=== PATIENT | female | born 1960 | race Caucasian/White ===

== ENCOUNTER 2021-02-19 08:23 | Emergency (ER) | payer MEDICARE, SELFPAY ==
[2021-02-19] VITALS (22 sets, daily range): BP systolic 69–112; BP diastolic 28–91; PULSE 77–108; RESP 16–37; TEMP 36.9; O2SAT 91–99
--- NOTE | ~2021-02-19 | XR_ITS ---
XR chest port-a-cath/central 02/19/2021 20:06 Indication: Central line placement Procedure: AP portable chest Comparison: 02/19/2021 Findings: Patchy bilateral airspace disease, compatible with pneumonia. Right IJ central line tip in the right atrium. Small pleural effusion. No pneumothorax. Impression: 1: Patchy bilateral airspace disease, compatible with pneumonia. Reviewed, dictated and finalized at location A. Impression: 1: Patchy bilateral airspace disease, compatible with pneumonia.
--- NOTE | ~2021-02-19 | CT_ITS ---
EXAMINATION: CT abdomen pelvis w con DATE: 02/19/2021 11:53 INDICATION: Generalized abdominal pain. TECHNIQUE: Computed tomography (CT) of the abdomen and pelvis was performed with 100 mL Omnipaque 350 intravenous contrast. Automated exposure control and iterative reconstruction technique were employe d. The dose-length product was 704.47 mGy-cm. COMPARISON: None. FINDINGS: The visualized portions of the lung bases demonstrate patchy airspace and groundglass opaci ties in right middle lobe with cavitation. There is crazy paving in right upper lobe and lingula. The re are patchy airspace opacities and groundglass opacities in the lower lobes with air bronchograms. There is a small left pleural effusion. Cardiomegaly is noted. There are coronary artery calcificatio ns. There is a small pericardial effusion. There is heterogeneous liver attenuation. There is a 2.3 c m cyst in the liver. The gallbladder is normal in size. Gallbladder wall thickening is likely seconda ry to interstitial edema. The spleen, pancreas, and right adrenal gland are normal. There is a 1.9 cm mass in left adrenal gland measuring soft tissue attenuation. There is cortical thinning of the kidn eys. There is a 1.3 cm cyst in right kidney. Pelvic floor relaxation is noted. There is a small volum e of ascites. There is an anastomosis in the sigmoid colon. There are no dilated loops of bowel. The appendix is not visualized. There is severe thoracic and lumbar spondylosis. There is a radiopaque fo reign body anterior to S1. IMPRESSION: 1. Multifocal pneumonia. 2. Small pleural effusion. 3. Cardiomegaly. 4. Small pericardial effusion. 5. Small volume of ascites. 6. 1.9 cm left adrenal mass. In the absence of known malignancy with tendency to spread to the adrena l gland, this finding is likely an adenoma. Reviewed, dictated and finalized at location A. IMPRESSION: 1. Multifocal pneumonia. 2. Small pleural effusion. 3. Cardiomegaly. 4. Small pericardial effusion. 5. Small volume of ascites. 6. 1.9 cm left adrenal mass. In the absence of known malignancy with tendency t o spread to the adrenal gland, this finding is likely an adenoma.
--- NOTE | ~2021-02-19 | CT_ITS ---
EXAMINATION: CT brain wo con DATE: 02/19/2021 11:52 INDICATION: Confusion. TECHNIQUE: Computed tomography (CT) of the head was performed without intravenous contrast. The mA wa s adjusted according to patient size. Iterative reconstruction technique was employed. The dose-lengt h product was 605.33 mGy-cm. COMPARISON: None FINDINGS: There are old infarcts in the bilateral basal ganglia, thalami, and internal capsules and r ight frontal lobe billings radiata. There are scattered areas of low attenuation in the cerebral white matter. There is no intracranial hemorrhage, acute infarction, or abnormal intracranial mass lesion. The ventricles are normal in size. The orbits are normal. There is mucosal thickening in the paranasa l sinuses. There are trace mastoid effusions. IMPRESSION: 1. 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 2. Mild nonspecific cerebral white matter disease, which likely represents chronic small vessel ische heather disease. Reviewed, dictated and finalized at location A. IMPRESSION: 1. Old infarcts involving the bilateral basal ganglia, thalami, and internal ca psules and right frontal lobe billings radiata. 2. Mild nonspecific cerebral white matter disease, which likely represents health and wellness manager nayely small vessel ischemic disease.
--- NOTE | ~2021-02-19 | XR_ITS ---
XR chest 1V portable 02/19/2021 15:15 Indication: Pneumonia Procedure: AP portable chest Comparison: No prior studies for comparison. Findings: Multifocal airspace consolidation, consistent with pneumonia. Small right pleural effusion. Cardiomegaly. No pneumothorax. Impression: 1: Multifocal pneumonia, most confluent in the right lower lung zone. Reviewed, dictated and finalized at location A. Impression: 1: Multifocal pneumonia, most confluent in the right lower lung zone.
[2021-02-19 09:03] LABS: Glucose Point of Care 102 mg/dl (65-105)
--- NOTE | 2021-02-19 09:07 | ECG_ITS ---
Measurements Intervals [place] Rate: 100 P: 81 NE: 129 QRS: 89 QRSD: 86 T: 255 QT: 407 QTc: 525 Interpretive Statements SINUS TACHYCARDIA INCOMPLETE RIGHT BUNDLE BRANCH BLOCK DELAYED PRECORDIAL R/S TRANSITION ST-T WAVE ABNORMALITY IN INF/LAT LEADS- CONSIDER ISCHEMIA BASELINE WANDER- II, III ABNORMAL ECG Electronically Signed On 02-19-2021 15:03:30 CDT by Brett Cavazos D.O.
[2021-02-19 09:31] LABS: Basophils Percent Auto 0.1 % (0.2-1.2); Hematocrit 28.5 % (37.0-47.0); Hemoglobin 8.6 g/dL (12.0-15.0); Immature Granulocyte Absolute 0.09 K/mm3 (0.00-0.031); Immature Granulocyte Percent A 0.6 % (0-0.5); Lymphocytes Absolute Auto 0.85 K/mm3 (0.9-3.2); Lymphocytes Percent Auto 6.1 % (18.3-44.2); Mean Corpuscular HGB Conc 30.2 g/dl (32-36); Mean Corpuscular Hemoglobin 28.6 pg (26-34); Mean Corpuscular Volume 94.7 fl (80-100); Mean Platelet Volume 9.6 fl (7.4-10.4); Monocytes Absolute Auto 0.6 K/mm3 (0.1-0.6); Monocytes Percent Auto 4.3 % (2.6-8.5); Neutrophils Absolute Auto 12.3 K/mm3 (1.3-6.7); Neutrophils Percent Auto 88.9 % (45.5-73.1); Nucleated Red Blood Cells Absolute Auto 0.3 K/mm3 (0.0-0.012); Nucleated Red Blood Cells Perc 1.9 % (0.0-0.2); Platelet Count Result 336 k/mm3 (150-375); Red Blood Count 3.01 M/mm3 (4.2-5.4); Red Cell Distribution Width 19.6 % (11.5-14.5); White Blood Count 13.9 K/mm3 (4.5-10.0)
[2021-02-19] MEDS: SODIUM CHLORIDE 0.9% 999 ML IV CONT (09:35)
[2021-02-19 09:41] LABS: INR 1.3; Lactic Acid Reflex 3.8 mmol/L (0.7-2.1); Prothrombin Time 17.2 Seconds (11.1-14.7)
[2021-02-19 09:43] LABS: Partial Thromboplastin Time 29.6 SECONDS (22.3-36.8)
--- NOTE | 2021-02-19 09:51 | ED.AMS ---
HPI - Altered Mental Status General Chief Complaint: Altered Mental Status Stated Complaint: AMS/BREATHING PROBLEMS Time Seen by Provider: 02/19/21 09:06 Source: EMS and RN notes reviewed Mode of arrival: EMS Limitations: clinical condition History of Present Illness HPI narrative: Patient is 60 years old -[place] female came from a longterm with unresponsiveness. After speaking to the nurse practitioner at the longterm who is telling me that patient transfer to her facility from [facility] 2 weeks ago. 1 day later start getting quite, declining, not eating, abdominal pain. Patient is bedridden, KUB yesterday was ordered and showed a metallic object of unknown diagnosis. The nurse practitioner was not able to get labs. This morning the nurse who supposed to take care of the patient noticed that the patient does not look good she called 911 and send her to [facility]. That nurse works once every 2 weeks and today was her first day. Basically is not familiar with the patient. After talking to the patient nurse at the longterm and the nurse practitioner I get the feeling that they do not know a lot about the patient. Related Data Home Medications Medication Instructions Recorded Confirmed acetaminophen 325 mg PO 6XD PRN 02/19/21 amlodipine 02/19/21 ascorbic acid (vitamin C) 1,000 mg PO BID 02/19/21 calcium carbonate-vitamin D3 1 tablet PO TID 02/19/21 hydrochlorothiazide 02/19/21 iron-folic acid-mv, min cmb#15 1 cap PO DAILY 02/19/21 pantoprazole 20 mg PO QAM 02/19/21 Allergies Allergy/AdvReac Type Severity Reaction Status Date / Time No Known Allergies Allergy Verified 02/19/21 12:20 Exam Narrative: Exam Narrative: General appearance: Malnourished, contracted, morning, nonverbal Skin: Normal color Head: Normocephalic, nontraumatic Eyes: Clear conjunctiva Chest and respiratory: Airway patent, no respiratory distress, no accessory muscle use Heart: Regular rate/rhythm Abdomen: Soft, nontender, no organomegaly, quiet bowel sounds Vascular: Normal peripheral pulses, normal capillary refill. Musculoskeletal: Contracted Neurologic: Nonverbal Course Course Emergency Course: Guarded Reevaluation(s) Reevaluation #1: Patient still feeling okay, hemodynamically stable, not accepted to go to [facility] right now Date: 02/19/21 Time: 16:57 Consultations Consultation #1: DR DOWLING, hospitalist at [facility] who accepted patient transfer. No bed available at this time. Probably within 24 hours. Date: 02/19/21 Time: 15:49 Vital Signs Vital signs: Vital Signs Temperature 36.9 C 02/19/21 08:17 Pulse Rate 108 H 02/19/21 08:17 Respiratory Rate 24 H 02/19/21 08:17 Blood Pressure 69/44 L 02/19/21 08:17 Pulse Oximetry 92 02/19/21 08:17 Temperature 36.9 C 02/19/21 08:17 Pulse Rate 100 02/19/21 17:00 Respiratory Rate 20 02/19/21 17:00 Blood Pressure 101/72 02/19/21 17:00 Pulse Oximetry 94 02/19/21 17:00 MDM - Altered Mental Status MDM Narrative Medical decision making narrative: Patient arrived to the ED with nonspecific complaint. Septic protocol ordered. Further plan to follow Differential Diagnosis Differential diagnosis: Likely altered mental status, delirium, dementia, hypoglycemia, hyponatremia, subarachnoid hemorrhage and sepsis Lab Data Result diagrams: 02/19/21 09:18 02/19/21 09:18 Labs: Lab Results 02/19/21 02/19/21 02/19/21 Range/Units 08:57 09:18 09:18 WBC 13.9 H (4.5-10.0) K/mm3 RBC 3.01 L (4.2-5.4) M/mm3 Hgb 8.6 L (12.0-15.0) g/dL Hct 28.5 L (37.0-47.0) % MCV 94.7 (80-100) fl [facility]
[2021-02-19 10:09] LABS: Add Urine Microscopic? YES; Appearance Urine Cloudy (Clear); Bacteria Urine 1+ /hpf; Bilirubin Urine Negative (Negative); Color Urine Amber (Yellow); Glucose Urine UA Negative (Negative); Ketones Urine Negative (Negative); Leukocyte Esterase Ur Trace LEU/UL (Negative); Mucus Urine Few /lpf; Nitrate Urine Negative (Negative); Protein Urine 3+ mg/dL (Negative); Specific Grav Ur 1.019 (1.001-1.035); Squamous Epithelial Cell Urine Many /hpf (Few)
[2021-02-19 10:10] LABS: Blood Urine Negative (Negative)
[2021-02-19 10:43] LABS: Alanine Aminotransferase 16 U/L (4-35); Alkaline Phosphatase 298 U/L (38-126); Anion Gap 12 mmol/L (8-16); Aspartate Amino Transferase 35 U/L (14-36); Bilirubin,Total 1.6 mg/dL (0.2-1.3); Blood Urea Nitrogen 47 mg/dL (7-17); Calcium 8.8 mg/dL (8.4-10.2); Carbon Dioxide 22 mmol/L (22-30); Chloride 112 mmol/L (98-107); Estimated Glomerular Filt Rate > 60; Glucose 106 mg/dL (65-105); Potassium 4.4 mmol/L (3.4-5.0); Sodium 146 mmol/L (137-145)
[2021-02-19 10:51] LABS: CRP 23.9 mg/dL (<1.0)
[2021-02-19 12:28] LABS: Reflex Lactic Acid Yes or No Add Lactic
--- NOTE | 2021-02-19 16:00 | PM.EVENT ---
Event Note Event Note Event Note: I was called to admit the patient as she was accepted at [facility] in transfer for continuity of care though they did not expect a bed to be available until sometime tomorrow. I came to evaluate the patient in the emergency department and shortly thereafter was told that a bed was available and that I did not need to see or admit the patient.
--- NOTE | 2021-02-19 19:25 | PC.NURSE ---
PT WITH NOTED LOW BP UPON EMS ARRIVAL. ADDITIONAL IV ACCESS INITIATED. EMS HOLDING ON TRANSPORT UNTIL PRESSURE STABILIZED. PT WITH NO CHANGE IN MENTATION. MOANING WITH PAINFUL STIMULI. CONTINUES TO PREFER LYING ON L SIDE. DR PEDERSON AWARE OF LOW BP AND AT BEDSIDE TO ASSESS. REPORT TO DOTTIE FREEMAN.
[2021-02-19] MEDS: NOREPINEPHRINE 8 MG/D5W 250 ML 8 MG/250 ML BAG 9.38 MG IV CONT (20:08)
[2021-02-20] VITALS (8 sets, daily range): BP systolic 31–120; BP diastolic 0–105; PULSE 106–114; RESP 24–28; TEMP 36.3; O2SAT 91–98
[2021-02-20] MEDS: SODIUM CHLORIDE 0.9% IV 1,000 ML 125 ML IV CONT (00:35)
--- NOTE | 2021-02-20 00:36 | PC.NURSE ---
pts BP dropped to 60/32. Dr. Howe notified, started 1 litre NS as ordered.
[2021-02-20 00:50] LABS: Glucose Point of Care 93 mg/dl (65-105)
--- NOTE | 2021-02-20 00:51 | PC.NURSE ---
MD aware of BP drop. vasopression ordered, Levo increased
--- NOTE | 2021-02-20 00:59 | PC.NURSE ---
0.02 units/hr vasopressin started at this time.
[2021-02-20] MEDS: VASOPRESSIN INJ 100 UNITS in DEXTROSE 5% 95 ML IV CONT (01:00)
== END 2021-02-20 02:29 | disposition short-term general hospital (02) ==
LOC: ANHED 14:51 → ANHIMU 17:01 → ANHED 20:00
PROVIDERS: Emergency Medicine; Emergency Provider Emergency Medicine
DX: A41.9 Sepsis, unspecified organism (principal); R65.21 Severe sepsis with septic shock; J18.9 Pneumonia, unspecified organism; I31.3 Pericardial effusion (noninflammatory); R18.8 Other ascites; E27.8 Other specified disorders of adrenal gland; I10 Essential (primary) hypertension; Z86.73 Personal history of transient ischemic attack (TIA), and cerebral infarction without residual deficits; I51.7 Cardiomegaly; R90.82 White matter disease, unspecified; R00.0 Tachycardia, unspecified; I45.10 Unspecified right bundle-branch block; R94.31 Abnormal electrocardiogram [ECG] [EKG]
CPT/HCPCS: 36415; 36556; 51701; 70450; 71045; 74177; 80053; 81001; 82948; 83605; 85025; 85610; 85730; 86140; 87040; 87086; 87088; 93005; 96361; 96365; 96366; 96367; 96368; 96375; 99291; C1751; J0131; J1956; J2543; J3370; J7030; Q9967